=== PATIENT | female | born 1975 | race Caucasian/White ===

== ENCOUNTER 2016-05-07 19:19 | Emergency (ER) | payer MEDICAID ==
[~2016-05-07] VITALS: Ht 160 cm; Wt 68.5 kg
[~2016-05-07 19:19] MED LIST: ACET1TAB40 PO; ZOF8 PO
[2016-05-07 20:04] VITALS: Ht 160 cm; Wt 68.5 kg
--- NOTE | 2016-05-07 22:48 | RADRPT ---
PROCEDURE: XR Chest. CLINICAL INDICATION: Chest pain. TECHNIQUE: Single frontal chest x-ray. COMPARISON: None. FINDINGS: The cardiomediastinal silhouette is unremarkable. The lungs are clear. No focal infiltrate is seen. There is no pleural effusion. There is no pneumothorax. The osseous structures are unremarkable. IMPRESSION: 1. No active disease. RPTAT: [facility] .Barney Padilla MD, Date Time Electronically viewed and signed by .Barney Padilla MD, on 05/07/2016 22:48 .K/
[2016-05-07] MEDS ORDERED: CEPH-443 PO (22:56)
[2016-05-07] MEDS ORDERED: IBUP-1542 PO (22:56)
[2016-05-07 23:07] VITALS: BP 115/70; PULSE 76; RESP 20; TEMP 98
--- NOTE | 2016-05-08 01:09 | ERD ---
ER Documentation Chief Complaint Date/Time DATE: 05/08/16 TIME: 01:05 Chief Complaint abscess left axillary area HPI This is a 40-year-old female that presents to the ER stating she has a bump in her left axilla. Patient noticed this bump 6 months ago. 4 days ago patient states that area started swelling and that she popped it, a lot of yellow pus came out. Patient states that pain radiates from her left axilla to her chest. Patient denies any shortness of breath. Patient is worried because she still has some redness to the area. He is also complaining of headaches, body aches, fatigue over the last 4 months. Patient denies any fevers or chills. ROS 12 point review of systems was done, all negative except per HPI. Medications Home Meds Active Scripts Cephalexin* (Keflex*) 500 Mg Capsule, 500 MG PO QID for 7 Days, CAP Prov:HERMINIO ZUNIGANA C 05/07/16 Ibuprofen* (Motrin*) 600 Mg Tab, 600 MG PO Q6, #30 TAB Prov:MARY ZUNIGA 05/07/16 Acetaminophen-Codeine* (Acetaminophen-Cod #3*) 300-30 Mg Tab, 1 TAB PO Q4H Y for PAIN, #10 TAB Prov:RAJENDRA PEREZ MD 12/17/14 Ondansetron Hcl* (Zofran* ODT) 8 mg -ODT Tab.disper, 8 MG PO Q6 Y for NAUSEA AND /OR VOMITING, #8 TAB Prov:RAJENDRA PEREZ MD 12/17/14 Allergies Allergies: Coded Allergies: No Known Allergy (Unverified , 12/17/14) PMhx/Soc History of Surgery: Yes (C SECTION) Anesthesia Reaction: No Hx Neurological Disorder: No Hx Respiratory Disorders: No Hx Cardiac Disorders: No Hx Psychiatric Problems: No Hx Miscellaneous Medical Probl: No Hx Alcohol Use: No Hx Substance Use: No Hx Tobacco Use: No Smoking Status: Never smoker Physical Exam Vitals Vital Signs Date Time Temp Pulse Resp B/P Pulse Ox O2 Delivery O2 Flow Rate FiO2 05/07/16 23:07 98.0 76 20 115/70 100 Room Air 05/07/16 20:04 97.8 88 20 110/55 100 Physical Exam GENERAL: The patient is well developed and appropriate for usual state of health , in no apparent distress. HEENT: Atraumatic. Conjunctivae are pink. Pupils equal, round, and reactive to light. Extraocular muscles are grossly intact. Bilateral tympanic membranes are clear with no evidence of erythema, effusion or dulling of the light reflex. The oropharynx is clear with no erythema or exudates. NECK: C-spine is soft and supple. There is no cervical lymphadenopathy. CHEST: Clear to auscultation bilaterally. There are no rales, wheezes or rhonchi. HEART: Regular rate and rhythm. No murmurs, clicks, rubs or gallops. ABDOMEN: Soft, nontender and nondistended. Good bowel sounds. No rebound or guarding. No gross peritonitis. No gross organomegaly or masses. No Nicole sign or McBurney point tenderness. No pulsatile masses. BACK: No midline or flank tenderness. EXTREMITIES: Equal pulses bilaterally. There is no peripheral clubbing, cyanosis or edema. No focal swelling or erythema. Full range of motion. Grossly neurovascularly intact. NEURO: Alert and oriented. Cranial nerves II through XII are intact. Motor strength in all 4 extremities with 5/5 strength. Sensation grossly intact. Normal speech and gait. SKIN: There is a small area of erythema to the left axilla where abscess was. Procedures/MDM This is a 40-year-old female presents to the ER with multiple complaints. I discussed this case with my supervising physician Dr. Arellano. Patient complains of headaches joint pain and fatigue have been going on for the last 4 months. Suspicion for acute etiology is low. Patient is afebrile and well- appearing. In regards to patient's abscess in her axilla, abscess has already been draining and there is only a small area of redness. Patient however will be sent home with Keflex for any potential bacterial infection. Patient was complaining of pain radiating to her chest. EKG was done and read by Dr. Juarez [address] elevation no t wave inversion. Patient's chest x-ray was normal. I doubt intrathoracic abnormality. Patient will be sent home with ibuprofen for pain. She needs to follow-up with her primary care doctor within 1-2 days return to ER sooner if symptoms worsen. My medical decision making was shared with the patient she understands and agrees with plan. Departure Diagnosis: Primary Impression: Myalgia Condition: Stable Patient Instructions: Myalgias Additional Instructions: Llame al doctor MAANA y jeanne kathy YESSI PARA DENTRO DE 1-2 SMITH.Dgale a la secretaria que nosotros le instruimos hacer esta yessi.Avise o llame si agosto condicin se empeora antes de la yessi. Regresa aqui si peor o no mejor. MARY ZUNIGA May 08, 2016 01:09
== END 2016-05-07 23:08 | disposition home or self-care (01) ==
LOC: FTE 19:19
DX: M79.1 Myalgia (principal); R07.9 Chest pain, unspecified
CPT/HCPCS: 71010; 93005; Z7502